=== PATIENT | female | born 1975 | race Caucasian/White ===

== ENCOUNTER 2016-07-13 09:22 | Emergency (ER) | payer BC ==
[2016-07-13] MEDS ORDERED: Cephalexin 500 MG Cap PO ONE (09:34)
[2016-07-13] MEDS ORDERED: Diphtheria,Pertussis(Acell),Tetanus Vaccine 0.5 ML Syringe IM ONE (09:34)
[2016-07-13] MEDS ORDERED: Lidocaine 1% with EPINEPHrine 1:100,000 20 ML MDV INJECT ONE (09:34)
--- NOTE | 2016-07-13 09:41 | EDM.PDOC ---
ED HPI Trauma - General Chief Complaint: Upper Extremity Injury/Pain Stated Complaint: FISHING HOOK STUCK IN RT HAND Time Seen by Provider: 07/13/16 09:30 - History of Present Illness INITIAL COMMENTS - FREE TEXT/NARRATIVE: HISTORY AND PHYSICAL: History of present illness: The patient is a healthy 41-year-old female who is unsure of her last tetanus shot presents with a paddle fish fishing hook which is stuck in the proximal ulnar palmar surface of her right hand. Patient denies any cold injuries and has no neurosensory changes in the distal fingers or hand. Patient states she was not sure how to remove this due to the susan and the thickness of the cochlea itself. Patient complains of mild pain at the area but no other discomfort. Review of systems: As per history of present illness and below otherwise all systems reviewed and negative. Past medical history: As per history of present illness and as reviewed below otherwise noncontributory. Surgical history: As per history of present illness and as reviewed below otherwise noncontributory. Social history: No reported history of drug or alcohol abuse. Family history: As per history of present illness and as reviewed below otherwise noncontributory. Physical exam: General: Well-developed well-nourished female who is nontoxic vital signs of a noted by me HEENT: Atraumatic, normocephalic, negative for conjunctival pallor or scleral icterus, mucous membranes moist, throat clear, neck supple, nontender, trachea midline. Lungs: Clear to auscultation, breath sounds equal bilaterally, chest nontender. Heart: S1S2, regular rate and rhythm no overt murmurs. Abdomen: Soft, nondistended, nontender. NABS Genitourinary: Deferred. Rectal: Deferred. Extremities: Atraumatic with full range of motion with the exception of the palmar surface of the left hand where at the proximal ulnar surface just distal to the ulnar styloid a fishhook is seen which in the soft tissue extending into the soft tissue approximately 1.5 cm. There is no gross bleeding in the area and there is no gross swelling or ecchymosis. Neurosensory in the distal fingers and hand is intact as is flexion and extension of all digits., The legs are negative for cords or calf pain. Neurovascular unremarkable. Neuro: Awake, alert, oriented. Cranial nerves II through XII unremarkable. Cerebellum unremarkable. Motor and sensory unremarkable throughout. Exam nonfocal. Diagnostics: [] Therapeutics: Tdap, Keflex tramadol 0940: Case was discussed with our hand surgeon Dr. Delgado; she would like to come over and evaluate the patient prior to be performing any procedures and will bring some tools from the OR as this hook is very thick. 1015: Dr Muñiz in the ER and has performed the procedure of the hook removal. Please see her consult note for the procedure note. Patient tolerated it well and will be discharged home after doing a thorough surgical scrub of the hand Impression: [place] injury to right hand Definitive disposition and diagnosis as appropriate pending reevaluation and review of above. Allergies/ADRs: Allergies No Known Allergies Allergy (Verified 07/13/16 09:37) Home Medications: Ambulatory Orders LORazepam 0.5 mg DAILY 07/13/16 [Confirmed 07/13/16] Vortioxetine Hydrobromide [Trintellix] 20 mg DAILY 07/13/16 [Confirmed 07/13/16] Review of Systems - Review of Systems Review Of Systems: ROS reveals no pertinent complaints other than HPI. Trauma Exam - Physical Exam Exam: See Below (See dictation) Course - Vital Signs Last Recorded V/S: Last Vital Signs Temp 36.3 C 07/13/16 09:33 Pulse 72 07/13/16 09:33 Resp 18 07/13/16 09:33 BP 121/70 07/13/16 09:33 Pulse Ox 98 07/13/16 09:33 - Orders/Labs/Meds Orders: Active Orders 24 hr Category Date Time Status Communication Order [RC] STAT Care 07/13/16 10:23 Ordered Notify Provider Consults [RC] ASDIRECTED Care 07/13/16 10:23 Ordered Vaccines to be Administered [RC] PER UNIT ROUTINE Care 07/13/16 09:34 Active Consult to Physician [CONS] Stat Cons 07/13/16 10:22 Ordered Meds: Medications Discontinued Medications Generic Name Dose Route Start Last Admin Trade Name Freq PRN Reason Stop Dose Admin Cephalexin 500 mg 07/13/16 09:34 07/13/16 10:01 Keflex PO 07/13/16 09:35 500 mg ONETIME ONE Administration Diphtheria/Tetanus/Acell Pertussis 0.5 ml 07/13/16 09:34 07/13/16 10:01 Adacel IM 07/13/16 09:35 0.5 ml .ONCE ONE Administration Lidocaine/Epinephrine 20 ml 07/13/16 09:34 07/13/16 10:02 Xylocaine 1% With Epinephrine 1:100,000 INJECT 07/13/16 09:35 20 ml ONETIME ONE Administration Tramadol HCl 50 mg 07/13/16 10:08 Ultram PO 07/13/16 10:09 ONETIME ONE Departure - Departure Time of Disposition: 10:24 Disposition: Home, Self-Care 01 Condition: good Clinical Impression: Puncture wound of hand Qualifiers: Encounter type: initial encounter Foreign body presence: with foreign body Laterality: right Qualified Code(s): S61.441A - Puncture wound with foreign body of right hand, initial encounter Forms: ED Department Discharge Additional Instructions: The following information is given to patients seen in the emergency department who are being discharged to home. This information is to outline your options for follow-up care. We provide all patients seen in our emergency department with a follow-up referral. The need for follow-up, as well as the timing and circumstances, are variable depending upon the specifics of your emergency department visit. If you don't have a primary care physician on staff, we will provide you with a referral. We always advise you to contact your personal physician following an emergency department visit to inform them of the circumstance of the visit and for follow-up with them and/or the need for any referrals to a consulting specialist. The emergency department will also refer you to a specialist when appropriate. This referral assures that you have the opportunity for followup care with a specialist. All of these measure are taken in an effort to provide you with optimal care, which includes your followup. Under all circumstances we always encourage you to contact your private physician who remains a resource for coordinating your care. When calling for followup care, please make the office aware that this follow-up is from your recent emergency room visit. If for any reason you are refused follow-up, please contact the [facility] emergency department at and ask to speak to the emergency department charge nurse. [facility] Primary care- Internal Medicine and Family [address] [address] [facility] Specialty clinic-Plastic Surgery and Hand Surgery Professional Building [address] [place] [phone] Please keep area clean and dry using mild soap and water and keeping the wound dry with Band-Aid or gauze. Please take antibiotics as directed and to follow up with primary care or our hand specialist next week as needed. Return to ER as needed and as discussed - My Orders Last 24 Hours: My Active Orders 07/13/16 09:34 Vaccines to be Administered [RC] PER UNIT ROUTINE 07/13/16 10:22 Consult to Physician [CONS] Stat 07/13/16 10:23 Communication Order [RC] STAT Notify Provider Consults [RC] ASDIRECTED - Assessment/Plan Last 24 Hours: My Active Orders 07/13/16 09:34 Vaccines to be Administered [RC] PER UNIT ROUTINE 07/13/16 10:22 Consult to Physician [CONS] Stat 07/13/16 10:23 Communication Order [RC] STAT Notify Provider Consults [RC] ASDIRECTED
[2016-07-13] MEDS ORDERED: traMADol 50 MG Tab PO ONE (10:08)
--- NOTE | 2016-07-17 10:04 | PCM.OPNOTE ---
- General Post-Op/Procedure Note Date of Surgery/Procedure: 07/13/16 Operative Procedure(s): removal of foreign body right hand Pre Op Diagnosis: fish hook foreign body right palm Post-Op Diagnosis: Same Anesthesia Technique: Local Primary Surgeon: Kyung Delgado Complications: None Condition: Good
--- NOTE | 2016-07-17 18:17 | OR ---
SURGEON: VAISHALI SIMEON MD DATE OF PROCEDURE: 07/13/2016 PREOPERATIVE DIAGNOSIS: Right hand foreign body. POSTOPERATIVE DIAGNOSIS: Right hand foreign body. PROCEDURE: Removal of right hand foreign body fishhook. INDICATIONS: Ms. Goel is a 41-year-old female seen today, who unfortunately has had a fishhook stuck in the ulnar palmar surface of her right hand. Risks and benefits of removal were discussed with her and she was in agreement to proceed. Risks were including, but not limited to, bleeding, infection, damage to underlying or overlying structures, possible need for future interventions and possible scarring. Fortunately, she has no neurovascular defect and we will push this through, so hopefully not attain any more damage to the area. The wound appears to be quite superficial. She understands this. PROCEDURE IN DETAIL: After informed consent was obtained from the patient. The area was prepped with Betadine and anesthetized with local anesthetic. Once adequate anesthesia, the other 2 hooks were trimmed using a bone cutter from the fishhook and the third prong that was imbedded in the subcutaneous tissues were pushed through. Once this was pushed through, the sharp susan was trimmed again using a bone cutter and then the fishhook was easily removed. She tolerated this well. All counts of needles were correct at the end the case. The wound was copiously irrigated and dressed with bandage. She tolerated this well. FOLLOWUP INSTRUCTIONS: The patient will follow up with us on an as needed basis. She was given discharge instructions with antibiotics and pain control. She will call with any questions or concerns. HEGGTCLEMENTINE / ARIE /[id number]
== END 2016-07-13 10:36 | disposition home or self-care (01) ==
LOC: MW.ED 09:22
DX: S61.441A Puncture wound with foreign body of right hand, initial encounter (principal); W26.9XXA Contact with unspecified sharp object(s), initial encounter
CPT/HCPCS: 90471; 90715; 99283; A9270